=== PATIENT | female | born 1980 | race Caucasian/White ===

== ENCOUNTER 2021-07-08 11:58 | Emergency (ER) | payer OTHER, SELFPAY ==
[2021-07-08] VITALS (13 sets, daily range): BP systolic 134–153; BP diastolic 85–110; PULSE 82–114; RESP 18–25; TEMP 36.8; O2SAT 98–100
--- NOTE | ~2021-07-08 | CT_ITS ---
EXAMINATION: CT brain wo con DATE: 07/08/2021 13:01 INDICATION: Seizure. TECHNIQUE: Computed tomography (CT) of the head was performed without intravenous contrast. The mA wa s adjusted according to patient size. Iterative reconstruction technique was employed. The dose-lengt h product was 605.33 mGy-cm. COMPARISON: None FINDINGS: There is no intracranial hemorrhage, acute infarction, or abnormal intracranial mass lesion . The ventricles are normal in size. There is mucosal thickening in the paranasal sinuses. The orbits are normal. The mastoid air cells are normal. IMPRESSION: 1. Normal brain. Reviewed, dictated and finalized at location A. IMPRESSION: 1. Normal brain.
--- NOTE | ~2021-07-08 | XR_ITS ---
EXAMINATION: XR chest 1V DATE: 07/08/2021 13:02 INDICATION: Altered mental status. Shortness of breath. TECHNIQUE: A single frontal view of the chest was obtained. COMPARISON: CT abdomen and pelvis 07/06/2017 FINDINGS: The chest demonstrates clear lungs without pneumonia, pleural effusion, or pneumothorax. Th e heart size is normal. IMPRESSION: 1. No acute cardiopulmonary disease. Reviewed, dictated and finalized at location A.
[2021-07-08] MEDS: SODIUM CHLORIDE 0.9% IV 1,000 ML 999 ML IV CONT ×2 (12:41→14:49)
--- NOTE | 2021-07-08 12:41 | ECG_ITS ---
Measurements Intervals [place] Rate: 92 P: 66 SD: 126 QRS: 59 QRSD: 104 T: 51 QT: 333 QTc: 413 Interpretive Statements SINUS RHYTHM WITH SINUS ARRHYTHMIA NORMAL ECG NO PREVIOUS ECG AVAILABLE FOR COMPARISON Electronically Signed On 07-08-2021 17:37:11 CDT by Jaxson Diggs M.D.
--- NOTE | 2021-07-08 12:41 | ED.SEIZURE ---
HPI - Seizure General Chief Complaint: Seizure <Nadya Vasquez MD - Last Filed: 07/08/21 21:42> Stated Complaint: Seizures Due to Withdraw (fentanyl) <Nadya Vasquez MD - Last Filed: 07/08/21 21:42> Time Seen by Provider: 07/08/21 12:41 <Nadya Vasquez MD - Last Filed: 07/08/21 21:42> Source: patient and EMS <Nadya Vasquez MD - Last Filed: 07/08/21 21:42> Mode of arrival: EMS <Nadya Vasquez MD - Last Filed: 07/08/21 21:42> Limitations: other (Unreliable historian) <Naday Vasquez MD - Last Filed: 07/08/21 21:42> History of Present Illness HPI Narrative: Patient is a 41-year-old female with a history of scoliosis, asthma, polysubstance abuse, anxiety, depression, presenting to the emergency department via EMS for evaluation of rib pain, suicidal thoughts. Per EMS, patient was found this morning in a ditch, she had urinated on herself, was somewhat confused. Patient currently is alert and oriented to person, place, to time. I asked her what caused her to be admitted, she says she has no memory of this other than she may have been walking to past the time. Patient states that she thinks she may have had a seizure and may have hit her head. Patient states that she has struggled with suicidal thoughts over the past 3 months since her boyfriend reportedly overdosed and she found him in their home. Patient denies history of seizure disorder. She denies auditory or visual hallucinations. She denies plan or access to firearms. Patient states that she went to [facility] 3 days ago and was not offered any help. Patient reports history of suicidal ideation. Reports this has been quite frequent for her, daily. States that prior to her boyfriend passing away, she had been abstaining from narcotic use, but states that she last used 7 days ago. She reports alcohol use sparingly. Patient is reporting bilateral rib pain. She denies cough or shortness of breath. She denies fever but reports chills. She reports lower back pain. Patient denies lower extremity pain. I asked the patient when she last remembers from this morning or yesterday, patient states I do not know what happened. <Nadya Vasquez MD - Last Filed: 07/08/21 21:42> Related Data Allergies/Adverse Reactions: Allergies Allergy/AdvReac Type Severity Reaction Status Date / Time Penicillins Allergy Mild Difficulty Verified 07/08/21 17:08 Swallowing <Nadya Vasquez MD - Last Filed: 07/08/21 21:42> Review of Systems Review of Systems: CONSTITUTIONAL: Denies fever, reports chills EYES: Denies visual changes, redness, or discharge. ENT: Denies rhinorrhea, congestion, sore throat, or otalgia. CARDIOVASCULAR: Denies chest pain, reports bilateral lower rib pain without palpitations, or edema. RESPIRATORY: Denies cough or dyspnea. GASTROINTESTINAL: Denies abdominal pain, nausea, vomiting, or diarrhea. GENITOURINARY: Denies dysuria or hematuria. SKIN: Denies rash or itching. MUSCULOSKELETAL: Denies back pain, joint pain, or myalgia. NEUROLOGIC: Denies headache, numbness, or weakness. <Nadya Vasquez MD - Last Filed: 07/08/21 21:42> [facility] Social History Social History: Social History (Updated 07/08/21 @ 13:01 by Nadya Vasquez MD) Smoking status: Current every day smoker Tobacco type: cigarettes and e-cigarettes/vaping Alcohol intake: current Alcohol use details: Weekly Substance use: current Substance use type: amphetamines Other substance usage details: Fentanyl Last use: 1 week ago <Nadya Vasquez MD - Last Filed: 07/08/21 21:42> Exam Narrative: GENERAL: Awake, alert, conversant HEAD: Normocephalic, atraumatic. EYES: PERRLA and EOMI. ENT: Nares clear, no rhinorrhea or epistaxis. Mucous membranes moist. NECK: Supple. No midline cervical or midline thoracic tenderness. Patient does have scoliosis of the thoracic spine. CHEST: No res
--- NOTE | 2021-07-08 12:57 | PC.NURSE ---
pt. to ct accompanied by tech, reports they will remain with patient during imaging
[2021-07-08 13:29] LABS: Glucose Point of Care 106 mg/dl (65-105)
[2021-07-08 13:31] LABS: Basophils Percent Auto 0.5 % (0.2-1.2); Eosinophils Absolute Auto 0.1 K/mm3 (0-0.3); Eosinophils Percent Auto 0.6 % (0-4.4); Hemoglobin 16.6 g/dL (12.0-15.0); Immature Granulocyte Absolute 0.06 K/mm3 (0.00-0.031); Immature Granulocyte Percent A 0.7 % (0-0.5); Lymphocytes Absolute Auto 1.35 K/mm3 (0.9-3.2); Mean Corpuscular HGB Conc 33.2 g/dl (32-36); Mean Corpuscular Hemoglobin 28.1 pg (26-34); Mean Corpuscular Volume 84.6 fl (80-100); Mean Platelet Volume 10.5 fl (7.4-10.4); Monocytes Absolute Auto 0.8 K/mm3 (0.1-0.6); Neutrophils Absolute Auto 6.2 K/mm3 (1.3-6.7); Neutrophils Percent Auto 73.2 % (45.5-73.1); Platelet Count Result 323 k/mm3 (150-375); Red Blood Count 5.91 M/mm3 (4.2-5.4); White Blood Count 8.5 K/mm3 (4.5-10.0)
[2021-07-08 13:43] LABS: Alanine Aminotransferase 52 U/L (4-35); Albumin Level 5.3 g/dL (3.5-5.1); Alkaline Phosphatase 138 U/L (38-126); Anion Gap 17 mmol/L (8-16); Aspartate Amino Transferase 52 U/L (14-36); Bilirubin,Total 0.8 mg/dL (0.2-1.3); Blood Urea Nitrogen 14 mg/dL (7-17); Calcium 10.1 mg/dL (8.4-10.2); Carbon Dioxide 22 mmol/L (22-30); Chloride 104 mmol/L (98-107); Estimated CRCL calculation 70 ml/min; Estimated Glomerular Filt Rate > 60; Glucose 118 mg/dL (65-110); Potassium 3.4 mmol/L (3.4-5.0); Sodium 143 mmol/L (137-145)
[2021-07-08 13:47] LABS: Magnesium 2.5 mg/dL (1.6-2.3)
[2021-07-08 13:50] LABS: Acetaminophen < 10 ug/mL (10-30); Salicylate < 1.0 mg/dL (2-20)
[2021-07-08 13:51] LABS: Bilirubin Urine 1+ (Negative); Blood Urine Negative (Negative); Color Urine Yellow (Yellow); Glucose Urine UA Negative (Negative); Ketones Urine Trace mg/dL (Negative); Leukocyte Esterase Ur 1+ LEU/UL (Negative); Nitrate Urine Negative (Negative); Protein Urine 1+ mg/dL (Negative); Urobilinogen Urine 0.2 mg/dL (<2.0)
[2021-07-08 13:54] LABS: Add Urine Microscopic? YES; Appearance Urine Cloudy (Clear)
[2021-07-08 14:02] LABS: Bacteria Urine Trace /hpf; Mucus Urine Heavy /lpf; Squamous Epithelial Cell Urine Many /hpf (Few)
[2021-07-08 14:07] LABS: Barbiturate Screen Urine Negative (Negative); Benzodiazepines Screen Urine Negative (Negative)
[2021-07-08 14:09] LABS: Cannabinoid Screen Urine Negative (Negative); Cocaine Screen Urine Negative (Negative); Methadone Screen Urine Negative (Negative); Opiate Screen Urine Negative (Negative); Phencyclidine Screen Urine Negative (Negative)
[2021-07-08 14:27] LABS: Thyroid Stimulating Hormone 0.601 uIU/mL (0.465-4.680)
[2021-07-08 14:27] LABS: SARS-CoV-2 RNA PCR Negative
[2021-07-08 14:34] LABS: Amphetamine Screen Urine Positive (Negative)
--- NOTE | 2021-07-08 14:59 | PC.NURSE ---
pt. moved to RM. 15 sitter at bedside.
[2021-07-08] MEDS: KETOROLAC 30 MG/ML VIAL (*BKC) (16:25)
--- NOTE | 2021-07-08 17:26 | PC.NURSE ---
[phone] [facility] in [facility].
--- NOTE | 2021-07-08 19:45 | PC.NURSE ---
Pt has been accepted to [place] under the care of Dr. Martinez at this time. Call [phone] for report.
--- NOTE | 2021-07-08 20:01 | PC.NURSE ---
Report called to Maryjane FRASER at [place] at this time.
[2021-07-08] MEDS: LORazepam (*CRX) 0.5 MG TABLET PO (20:09)
--- NOTE | 2021-07-08 21:15 | PC.NURSE ---
[facility] called with ETA update. [id number]
--- NOTE | 2021-07-08 22:59 | PC.NURSE ---
[facility] called with ETA update [phone]
--- NOTE | 2021-07-09 00:05 | PC.NURSE ---
[facility] here.
[2021-07-09] MEDS: HYDROcodone/acetaminophen (*CRX) 5-325 MG TABLET 1 TAB PO (00:15)
[2021-07-09 00:19] VITALS: BP 139/94; PULSE 87; RESP 16; O2SAT 98
--- NOTE | 2021-07-09 00:20 | PC.NURSE ---
Pt given pain medication on discharge so pain as no re assessed
== END 2021-07-09 00:20 ==
PROVIDERS: Emergency Provider Emergency Medicine
DX: R45.851 Suicidal ideations (principal); F32.A Depression, unspecified; F19.10 Other psychoactive substance abuse, uncomplicated; E86.0 Dehydration; Z20.822 Contact with and (suspected) exposure to COVID-19; J45.909 Unspecified asthma, uncomplicated; M41.9 Scoliosis, unspecified; F41.9 Anxiety disorder, unspecified; F17.290 Nicotine dependence, other tobacco product, uncomplicated
CPT/HCPCS: 36415; 70450; 71045; 80053; 80307; 81001; 81025; 82948; 83735; 84443; 85025; 87086; 87088; 93005; 96361; 96374; 99285; A9270; C9803; J1885; J7030; U0003; U0005

== ENCOUNTER 2021-08-20 12:18 | Outpatient (CLI) | payer OTHER, SELFPAY ==
--- NOTE | ~2021-08-20 | XR_ITS ---
XR lumbar spine 2-3V DATE: 08/20/2021 13:02 INDICATION: Low back pain. No known injury. TECHNIQUE: AP, lateral, coned lateral lumbosacral views COMPARISON: None FINDINGS: The lumbar vertebrae are normally aligned. No fracture or bone destruction or spondylolisth esis. The lumbar pedicles are intact. Lumbar and lumbosacral interspaces are preserved. Sacroiliac kisha ints are intact. IMPRESSION: Negative Reviewed, dictated and finalized at location B. IMPRESSION: Negative
[2021-08-20 12:49] LABS: Hematocrit 42.2 % (37.0-47.0); Hemoglobin 13.7 g/dL (12.0-15.0); Mean Corpuscular HGB Conc 32.5 g/dl (32-36); Mean Corpuscular Hemoglobin 28.8 pg (26-34); Mean Corpuscular Volume 88.7 fl (80-100); Mean Platelet Volume 9.9 fl (7.4-10.4); Platelet Count Result 331 k/mm3 (150-375); Red Blood Count 4.76 M/mm3 (4.2-5.4); Red Cell Distribution Width 14.1 % (11.5-14.5); White Blood Count 9.5 K/mm3 (4.5-10.0)
[2021-08-20 13:04] LABS: Alanine Aminotransferase 29 U/L (6-35); Albumin Level 5.3 g/dL (3.5-5.1); Alkaline Phosphatase 93 U/L (38-126); Anion Gap 12 mmol/L (8-16); Aspartate Amino Transferase 26 U/L (14-36); Bilirubin,Total 0.7 mg/dL (0.2-1.3); Blood Urea Nitrogen 9 mg/dL (7-17); Calcium 9.6 mg/dL (8.4-10.2); Carbon Dioxide 24 mmol/L (22-30); Chloride 103 mmol/L (98-107); Cholesterol 175 mg/dL (0-200); Estimated Glomerular Filt Rate > 60; Glucose 99 mg/dL (65-110); HDL Direct 60 mg/dL; Potassium 3.7 mmol/L (3.4-5.0); Sodium 139 mmol/L (137-145); Triglycerides 74 mg/dL (<150)
[2021-08-20 13:08] LABS: Hemoglobin A1C 5.2 % (<5.7)
[2021-08-20 13:08] LABS: Creatinine Urine 30.5 mg/dL
[2021-08-20 13:10] LABS: Rheumatoid Factor < 8.6 IU/ML (<12)
[2021-08-20 13:14] LABS: MALB Creatinine Ratio < 19.7 mg/g (0-30); Microalbumin Urine Random < 6.0 mg/L (0-16.7)
[2021-08-20 13:15] LABS: LDL Cholesterol Direct 83 mg/dL
[2021-08-20 13:20] LABS: Erythrocyte Sedimentation Rate 14 mm/hr (0-20)
[2021-08-20 14:04] LABS: Free T4 Free Thyroxine 1.62 ng/mL (0.78-2.19); Vitamin D 25 Hydroxy 53.8 ng/mL
[2021-08-20 14:19] LABS: Hepatitis B Surface Antigen Negative (Negative)
[2021-08-20 14:25] LABS: HAV RESULT Negative (Negative); Hepatitis B Core IgM Result Negative (Negative)
[2021-08-20 14:52] LABS: Hepatitis C Virus Antibody Reactive (Negative)
[2021-08-22 19:16] LABS: Hepatitis C RNA, Quant PCR 205000 IU/mL
== END 2021-08-20 12:19 | disposition home or self-care (01) ==
PROVIDERS: PCP Emergency Medicine; Visit Provider Emergency Medicine
DX: M54.50 Low back pain, unspecified (principal)
CPT/HCPCS: 36415; 72100; 80053; 80061; 80074; 82043; 82306; 83036; 84439; 84443; 85027; 85652; 86038; 86430; 87522

== ENCOUNTER 2022-02-02 13:53 | Outpatient (CLI) | payer OTHER, SELFPAY ==
[2022-02-05 18:03] LABS: Albumin 4.2 g/dL (3.8-4.8); Alpha 1 Globulin 0.3 g/dL (0.2-0.3); Alpha 2 Globulin 0.6 g/dL (0.5-0.9); Beta 1 Globulin 0.4 g/dL (0.4-0.6); Gamma Globulin 1.2 g/dL (0.8-1.7); Protein, Total 7.1 g/dL (6.1-8.1)
== END 2022-02-02 13:54 | disposition home or self-care (01) ==
PROVIDERS: PCP Emergency Medicine; Visit Provider Emergency Medicine
DX: R77.9 Abnormality of plasma protein, unspecified (principal)
CPT/HCPCS: 36415; 84155; 84165

== ENCOUNTER 2022-02-06 15:22 | Outpatient (CLI) | payer OTHER, SELFPAY ==
--- NOTE | ~2022-02-06 | XR_ITS ---
EXAMINATION: XR chest 2V 02/06/2022 15:34 INDICATION: Cough. History of asthma. PROCEDURE: 2 view chest COMPARISON: 07/08/2021 FINDINGS: The lungs are clear. The cardiomediastinal silhouette is within normal limits. There are no pleural effusions. There is no pneumothorax suspected. IMPRESSION: 1: NO ACUTE CARDIOPULMONARY DISEASE. Reviewed, dictated and finalized at location B.
== END 2022-02-06 15:23 | disposition home or self-care (01) ==
PROVIDERS: PCP Emergency Medicine; Visit Provider Emergency Medicine
DX: R05.9 Cough, unspecified (principal); Z87.09 Personal history of other diseases of the respiratory system
CPT/HCPCS: 71046

== ENCOUNTER 2024-02-18 13:48 | Emergency (ER) | payer BC, MEDICAID, SELFPAY ==
--- NOTE | ~2024-02-18 | CT_ITS ---
History: Altered mental status PROCEDURE: CT head without contrast. COMPARISON: 07/08/2021 TECHNIQUE: Axial imaging of the head performed from the skull base to the vertex without IV contrast. Sagittal a nd coronal reformations obtained. DLP: 605 mGy-cm FINDINGS: The ventricles are normal in size, shape and position. There is no mass, mass effect or midline shift. There is no abnormal extra-axial fluid collection or intracranial hemorrhage. Visualized paranasal sinuses are clear. The mastoid air cells are well aerated. No acute displaced fractures within the overlying cranium. Impression: No acute intracranial hemorrhage or suspicious mass effect. Reviewed, dictated and finalized at location A. ED PRODUCTS INSPECTOR TRIMMER Impression: No acute intracranial hemorrhage or suspicious mass effect.
[2024-02-18 13:50] VITALS: BP 143/80; PULSE 94; RESP 18; TEMP 36.4; O2SAT 100
[2024-02-18 16:39] VITALS: BP 135/85; PULSE 93; RESP 18; O2SAT 100
--- NOTE | 2024-02-18 17:20 | ECG_ITS ---
Test Date: 2024-02-18 17:53:21 Measurements Intervals [place] Rate: 80 P: 61 SD: 136 QRS: 56 QRSD: 109 T: 47 QT: 349 QTc: 402 Interpretive Statements SINUS RHYTHM WITH SINUS ARRHYTHMIA NORMAL ECG No previous ECG available for comparison Electronically Signed On 02-18-2024 18:28:55 BREAKFAST BAR ATTENDANT by Russell Alonzo D.O.
--- NOTE | 2024-02-18 17:22 | ED_ITS ---
HPI - General Adult General Chief complaint: Urogenital-Female Stated complaint: brain fog, LLQ abd/flank pain, uti Time Seen by Provider: 02/18/24 16:37 Source: patient Mode of arrival: ambulatory Limitations: no limitations History of Present Illness HPI narrative: Garg 43-year-old female here for some vague symptoms going on for over a week including some feelings of ?brain fog?, feeling like she is having some visual changes with some spots in her vision. She is being treated for UTI which she has chronic UTIs and feels like it might not be fully treated and may be moving around her body and spreading. She went to be evaluated for that. She has been evaluated before for similar symptoms. Related Data Allergies Allergy/AdvReac Type Severity Reaction Status Date / Time Penicillins Allergy Mild Difficulty Verified 02/18/24 19:25 Swallowing Review of Systems Review of Systems: All systems reviewed & are unremarkable except as noted in HPI and below PMFSH Social History Social History Smoking status: Current every day smoker Tobacco type: cigarettes and e-cigarettes/vaping Alcohol intake: current Alcohol use details: Weekly Substance use: current Substance use type: amphetamines Other substance usage details: Fentanyl Last use: 1 week ago Exam Narrative: Constitutional: Generally well appearing, no acute distress Head: Atraumatic, no deformities. Eyes: Pupils equal, round, and reactive to light. Neck: Supple, no tracheal deviation, no JVD. ENMT: Mucous membranes moist Cardiovascular: S1, S2 auscultated. No murmurs, rubs, or gallops. No S3/S4. Normal Distal pulses. No peripheral edema. Respiratory: Lung sounds equal. No wheezes, rales, or rhonchi. Gastrointestinal: Abdomen was soft and non-tender. Non-distended. No rebound or guarding. Genitourinary: Deferred Musculoskeletal: Normal muscle tone and bulk. No obvious deformities or tenderness over extremities. Skin: No rashes. Neurological: Strength 5/5 in extremities. Cranial nerves I-XII grossly intact. Distal sensation intact. Mental Status: Awake, alert and oriented x3. Follows commands Course Vital Signs Vital signs: Vital Signs Temperature 36.4 C 02/18/24 13:50 Pulse Rate 94 02/18/24 13:50 Respiratory Rate 18 02/18/24 13:50 Blood Pressure 143/80 H 02/18/24 13:50 Pulse Oximetry 100 02/18/24 13:50 Oxygen Delivery Room Air 02/18/24 13:50 Temperature 36.4 C 02/18/24 13:50 Pulse Rate 97 02/18/24 19:15 Respiratory Rate 13 02/18/24 19:15 Blood Pressure 121/76 02/18/24 19:15 Pulse Oximetry 100 02/18/24 19:15 Oxygen Delivery Room Air 02/18/24 13:50 Medical Decision Making MDM Narrative Medical decision making narrative: Well-appearing, patient has some vague symptoms that of an ongoing with brain fog, UTI being treated with Macrobid she was concerned about potentially infection spread. Vitals are regular, she is well appearing, nonfocal exam. Obtaining CT head for her brain fog symptoms as well as abdominal workup. EKG obtained at 5:53 p.m. shows sinus well sinus arrhythmia.? Normal intervals.? No ST elevation depression.? No T-wave changes.? Impression: No STEMI Workup shows UTI, otherwise no focal abnormalities notable. I suspect given with the pain in her back, likely pyelonephritis. Will treat with ceftriaxone and a prescription for ciprofloxacin pyelonephritis. Patient is agreeable with plan. Pt feeling improved and would like to go home at this point. Return precautions were given to the patient include any new or worsening symptoms or development of and not limited to any chest pain, shortness of breath, lightheadedness, abdominal pain, fevers, chills. Patient understands and agrees. They are to follow-up with her PCP. All questions were answered. I reviewed the patient's vital signs, history, allergies, and labs and imaging workup. Vital Signs Vital Signs: Vital Signs Temperature 36.4 C 02/18/24 13:50 Pulse Rate 94 02/18/24 13:50 Respiratory Rate 18 02/18/24 13:50 Blood Pressure 143/80 H 02/18/24 13:50 Pulse Oximetry 100 02/18/24 13:50 Oxygen Delivery Room Air 02/18/24 13:50 Temperature 36.4 C 02/18/24 13:50 Pulse Rate 97 02/18/24 19:15 Respiratory Rate 13 02/18/24 19:15 Blood Pressure 121/76 02/18/24 19:15 Pulse Oximetry 100 02/18/24 19:15 Oxygen Delivery Room Air 02/18/24 13:50 Lab Data 02/18/24 18:21 02/18/24 18:21 Labs: Lab Results 02/18/24 02/18/24 Range/Units 18:21 18:24 WBC 5.6 (4.5-10.0) K/mm3 RBC 3.17 L (4.2-5.4) M/mm3 Hgb 9.6 L D (12.0-15.0) g/dL Hct 28.8 L (37.0-47.0) % MCV 90.9 (80-100) fl MCH 30.3 (26-34) pg MCHC 33.3 (32-36) g/dl RDW 13.2 (11.5-14.5) % Plt Count 236 (150-375) k/mm3 MPV 10.2 (7.4-10.4) fl Immature Gran % (Auto) 0.2 (0-0.5) % Neut % (Auto) 68.3 (45.5-73.1) % Lymph % (Auto) 22.2 (18.3-44.2) % [place] % (Auto) 8.5 (2.6-8.5) % Eos % (Auto) 0.4 (0-4.4) % Baso % (Auto) 0.4 (0.2-1.2) % Lymph # (Auto) 1.23 (0.9-3.2) K/mm3 [place] # (Auto) 0.5 (0.1-0.6) K/mm3 Eos # (Auto) 0.0 (0-0.3) K/mm3 Baso # (Auto) 0.0 (0.0-0.1) K/mm3 Abs Immat Gran (auto) 0.01 (0.00-0.031) K/mm3 Absolute Neuts (auto) 3.8 (1.3-6.7) K/mm3 Absolute Nucleated RBC 0.000 (0.0-0.012) K/mm3 Nucleated RBC % 0.0 (0.0-0.2) % Sodium 141 (137-145) mmol/L Potassium 3.0 L (3.4-5.0) mmol/L Chloride 116 H (98-107) mmol/L Carbon Dioxide 21 L (22-30) mmol/L Anion Gap 4 (4-12) mmol/L BUN 5 L (7-17) mg/dL Creatinine 0.60 L (0.7-1.0) mg/dL Estim Creat Clear Calc 93 ml/min Estimated GFR > 60 (59 - ) Glucose 74 (65-110) mg/dL Lactic Acid 0.7 (0.7-2.0) mmol/L Calcium 7.0 L (8.4-10.2) mg/dL Total Bilirubin 0.4 (0.2-1.3) mg/dL AST 22 (14-36) U/L ALT 24 (6-35) U/L Alkaline Phosphatase 55 (38-126) U/L Total Protein 6.0 L (6.3-8.2) g/dL Albumin 3.1 L (3.5-5.1) g/dL Lipase 94 (23-300) U/L Urine Color Yellow (Yellow) Urine Appearance Cloudy H (Clear) Urine pH 6.0 (5.0-9.0) Ur Specific [place] 1.010 (1.001-1.035) Urine Protein Negative (Negative) mg/dL Urine Glucose (UA) Negative (Negative) mg/dL Urine Ketones Negative (Negative) mg/dL Ur Blood (Man) Negative (Negative) Urine Nitrate Negative (Negative) Urine Bilirubin Negative (Negative) Urine Urobilinogen 0.2 (<2.0) mg/dL Leukocyte Esterase Rfl 2+ H (Negative) UMER/UL Urine RBC 0-2 (0-2) /hpf Urine WBC 21-50 H (0-3) /hpf Ur Squamous Epith Cells Moderate (Few) /hpf Urine Bacteria Rare /hpf Urine Casts 0-2 Discharge Plan Discharge Clinical Impression: Urinary tract infection, Pyelonephritis Patient Disposition: Home, Self-Care Condition: Stable Instructions: Antibiotic Form, Kidney Infection (ED) Prescriptions: New ciprofloxacin HCl 500 mg tablet 500 mg PO BID 7 Days Qty: 14 0RF Rx Instructions: administer within 120 minutes prior to surgical incision Follow-up/Referrals: Jose Juan Santos MD [Primary Care Provider] - Time of Disposition: 19:27
[2024-02-18] MEDS: SODIUM CHLORIDE 0.9% IV 1,000 ML 999 ML IV CONT (18:13)
--- NOTE | 2024-02-18 18:21 | PC.NURSE ---
This RN and another RN attempted to get blood from patient and was unsuccessful. provider aware
[2024-02-18 18:30] LABS: Basophils Percent Auto 0.4 % (0.2-1.2); Eosinophils Percent Auto 0.4 % (0-4.4); Hematocrit 28.8 % (37.0-47.0); Hemoglobin 9.6 g/dL (12.0-15.0); Immature Granulocyte Absolute 0.01 K/mm3 (0.00-0.031); Immature Granulocyte Percent A 0.2 % (0-0.5); Lymphocytes Absolute Auto 1.23 K/mm3 (0.9-3.2); Lymphocytes Percent Auto 22.2 % (18.3-44.2); Mean Corpuscular HGB Conc 33.3 g/dl (32-36); Mean Corpuscular Hemoglobin 30.3 pg (26-34); Mean Corpuscular Volume 90.9 fl (80-100); Mean Platelet Volume 10.2 fl (7.4-10.4); Monocytes Absolute Auto 0.5 K/mm3 (0.1-0.6); Monocytes Percent Auto 8.5 % (2.6-8.5); Neutrophils Absolute Auto 3.8 K/mm3 (1.3-6.7); Neutrophils Percent Auto 68.3 % (45.5-73.1); Platelet Count Result 236 k/mm3 (150-375); Red Blood Count 3.17 M/mm3 (4.2-5.4); Red Cell Distribution Width 13.2 % (11.5-14.5); White Blood Count 5.6 K/mm3 (4.5-10.0)
[2024-02-18 18:39] LABS: Lactic Acid Reflex 0.7 mmol/L (0.7-2.0)
[2024-02-18 18:40] LABS: Alanine Aminotransferase 24 U/L (6-35); Albumin Level 3.1 g/dL (3.5-5.1); Alkaline Phosphatase 55 U/L (38-126); Anion Gap 4 mmol/L (4-12); Aspartate Amino Transferase 22 U/L (14-36); Bilirubin,Total 0.4 mg/dL (0.2-1.3); Blood Urea Nitrogen 5 mg/dL (7-17); Carbon Dioxide 21 mmol/L (22-30); Chloride 116 mmol/L (98-107); Estimated CRCL calculation 93 ml/min; Estimated Glomerular Filt Rate > 60; Glucose 74 mg/dL (65-110); Lipase 94 U/L (23-300); Sodium 141 mmol/L (137-145)
[2024-02-18 19:01] LABS: Add Urine Microscopic? YES; Appearance Urine Cloudy (Clear); Bacteria Urine Rare /hpf; Bilirubin Urine Negative (Negative); Blood Urine Negative (Negative); Color Urine Yellow (Yellow); Glucose Urine UA Negative (Negative); Ketones Urine Negative (Negative); Leukocyte Esterase Ur 2+ LEU/UL (Negative); Nitrate Urine Negative (Negative); Non Pathogenic Casts 0-2; Protein Urine Negative (Negative); RBC Urine 0-2 /hpf (0-2); Squamous Epithelial Cell Urine Moderate /hpf (Few); Urobilinogen Urine 0.2 mg/dL (<2.0); WBC Urine 21-50 /hpf (0-3)
[2024-02-18 19:15] VITALS: BP 121/76; PULSE 97; RESP 13; O2SAT 100
--- NOTE | 2024-02-18 19:18 | PC.NURSE ---
Report received from EVELIO Eckert. Assumed care of patient at this time.
[2024-02-18] MEDS: cefTRIAXone 2 GM/NS 100 ML 2 GM/100 ML BAG IVPB (19:24)
[2024-02-18] MEDS: KETOROLAC 15 MG/ML VIAL (*BKC) IV PUSH (19:26)
[2024-02-18 20:00] VITALS: BP 128/88; PULSE 83; RESP 17; O2SAT 100
== END 2024-02-18 20:17 | disposition home or self-care (01) ==
PROVIDERS: Emergency Provider Emergency Medicine; PCP Emergency Medicine
DX: N39.0 Urinary tract infection, site not specified (principal); N12 Tubulo-interstitial nephritis, not specified as acute or chronic; F17.210 Nicotine dependence, cigarettes, uncomplicated; F17.290 Nicotine dependence, other tobacco product, uncomplicated
CPT/HCPCS: 36415; 70450; 80053; 81001; 83605; 83690; 85025; 87086; 93005; 96361; 96365; 96375; 99284; J0696; J1885; J7030

== ENCOUNTER 2024-02-28 13:05 | Outpatient (CLI) | payer BC, MEDICAID, SELFPAY ==
[2024-02-28 14:07] LABS: Cholesterol 246 mg/dL (0-200); HDL Direct 91 mg/dL; Rheumatoid Factor < 12.0 IU/ML (<12); Triglycerides 91 mg/dL (<150)
[2024-02-28 14:14] LABS: Add Urine Microscopic? YES; Appearance Urine Cloudy (Clear); Bacteria Urine Rare /hpf; Bilirubin Urine Negative (Negative); Blood Urine Negative (Negative); Color Urine Yellow (Yellow); Glucose Urine UA Negative (Negative); Ketones Urine Negative (Negative); Leukocyte Esterase Ur 3+ LEU/UL (Negative); Need Manual Microscopic Reviewed; Nitrate Urine Negative (Negative); Non Pathogenic Casts 0-2; Protein Urine Negative (Negative); RBC Urine 0-2 /hpf (0-2); Specific Grav Ur 1.003 (1.001-1.035); Squamous Epithelial Cell Urine Moderate /hpf (Few); Urobilinogen Urine 0.2 mg/dL (<2.0); WBC Urine 21-50 /hpf (0-3)
[2024-02-28 14:17] LABS: LDL Cholesterol Direct 97 mg/dL
[2024-02-28 14:18] LABS: Parathyroid Intact 15.1 pg/mL (14.5-75.2)
[2024-02-28 14:40] LABS: Erythrocyte Sedimentation Rate 13 mm/hr (0-20)
[2024-02-28 14:48] LABS: Iron 84 ug/dL (37-170)
[2024-02-28 15:05] LABS: Free T4 Free Thyroxine 1.32 ng/mL (0.78-2.19)
[2024-02-28 15:12] LABS: Vitamin D 25 Hydroxy 63.9 ng/mL
== END 2024-02-28 13:06 | disposition home or self-care (01) ==
PROVIDERS: PCP Emergency Medicine; Visit Provider Emergency Medicine
DX: Z00.00 Encounter for general adult medical examination without abnormal findings (principal); D64.9 Anemia, unspecified
CPT/HCPCS: 36415; 80061; 81001; 82306; 83540; 83970; 84439; 84443; 85652; 86038; 86039; 86430; 87086

== ENCOUNTER 2024-02-29 09:02 | Outpatient (CLI) | payer BC, MEDICAID, SELFPAY ==
--- NOTE | ~2024-02-29 | MM_ITS ---
EXAMINATION: MM screening kassandra BI w jordi HISTORY: Screening mammogram TECHNIQUE: Craniocaudal and mediolateral oblique 3-D tomosynthesis images were obtained and synthetic 2-D images were generated. CAD analysis was submitted and interpreted. COMPARISON: No prior mammogram is available for comparison at this institution. BREAST PARENCHYMAL COMPOSITION:Dense: The breasts are heterogeneously dense, which may obscure small masses. FINDINGS: No suspicious mass, calcification, or architectural distortion are identified in either jacoby ast to suggest malignancy. There has been no suspicious interval change. IMPRESSION: No mammographic evidence of malignancy. Recommend routine screening mammography in one year. BI-RADS Category 1: Negative Reviewed, dictated and finalized at location . CASE ASSEMBLER
== END 2024-02-29 09:03 | disposition home or self-care (01) ==
PROVIDERS: PCP Emergency Medicine; Visit Provider Emergency Medicine
DX: Z12.31 Encounter for screening mammogram for malignant neoplasm of breast (principal)
CPT/HCPCS: 77063; 77067

== ENCOUNTER 2024-04-26 10:46 | Outpatient (CLI) | payer BC, MEDICAID, SELFPAY ==
--- NOTE | ~2024-04-26 | US_ITS ---
Mid back area ULTRASOUND Ordering provider: Jose Juan Santos MD History: . Lump on back . Comparison: None. FINDINGS/impression: Hypoechoic area measuring 4.5 x 4.9 x 2.7 cm in the mid back. The differential includes a mass versus lipoma although this likely. Inflammatory changes cannot be excluded with no significant blood flow. Further evaluation advised. Reviewed, dictated and finalized at location A. TH ASSOCIATE
== END 2024-04-26 10:47 | disposition home or self-care (01) ==
LOC: MICIMG 10:46
PROVIDERS: PCP Emergency Medicine; Visit Provider Emergency Medicine
DX: R22.2 Localized swelling, mass and lump, trunk (principal)
CPT/HCPCS: 76705

== ENCOUNTER 2024-08-18 00:04 | Day surgery (SDC) | payer BC, SELFPAY ==
--- NOTE | 2024-08-08 08:31 | PC.NURSE ---
Report to the Outpatient Waiting Room, entrance under the green pavilion located off [facility], at time _1100 on date _08/18/24_. Planned Procedure Time: _1300_.? Time changes happen often and if your time is changed the preop area will call you the afternoon before. - You and your visitor will be asked to self-screen and do not enter if you have any COVID symptoms. Please call surgeon if you need to reschedule. - A mask is optional within the hospital at this time. Patients may have clear liquids (water, carbonated beverages, clear teas, apple juice) until 3 hours prior to surgery with a maximum of 20 ounces. - No food from midnight until time of surgery and no smoking, or chewing tobacco (or any form of nicotine). No chewing gum, candy or mints. - Infants may have breast milk until 4 hours before surgery, infant formula 6 hours prior to surgery. - Children will be allowed to drink immediately following surgery.? If applicable, please bring a bottle or sippy cup to assist with drinking. Juice, water, soda, and popsicles are readily available.? For infants on formula, please bring formula the day of surgery.? Pacifiers are allowed. Take only the following medications with a SIP of water on the morning of surgery: ___NONE DO NOT STOP ANY OF YOUR OTHER PRESCRIPTION MEDICATIONS PRIOR TO SURGERY EXCEPT THE FOLLOWING Hold all vitamins and supplements for 3 days per anesthesiologist. Medications to discontinue per physician Date to take last dose Please no make-up, nail wolof, hairspray, perfume, deodorant, or body powder the day of surgery.? No jewelry (including any body piercings) or valuables the day of surgery, leave them at home.? Please take a shower or bath the night before, or the morning of, surgery with HIBICLENS antibacterial soap.? Wear comfortable, loose fitting clothing.? Children are encouraged to wear pajamas. - Jewelry must be removed prior to entering the operating room.? Rings and piercings that are not removed may be cut off. - The hospital will not accept responsibility for valuables.? - Please leave all valuables, including medications, at home the day of surgery. If you are going home after surgery, a licensed moving van driver must drive you home.? - NO public transportation without another adult if you receive anesthesia. - We recommend that an adult stay with you for 24 hours following discharge. - We also recommend that you do not drive, make important decision, drink alcoholic beverages, or take any drugs that were not prescribed by your health care provider for at least 24 hours after your discharge time. For Pediatric surgeries, we recommend two adults accompany the child home. Follow any additional instructions given to you from your surgeon. Telephone instructions given to __PATIENT__and asked if any additional questions and then verbalized understanding. Patient advised to call surgeon office or pre surgery nurse liaison [phone] if any additional questions.
--- NOTE | 2024-08-15 16:44 | P.SS_ITS ---
Same Day Admit/Disch: HPI History of Present Illness Chief complaint: Dermatofibroma Lt Thigh,Lipoma of Back 8cm Narrative: Jyoti Mott is a 44 year old female who has noticed a subcutaneous mass of her mid back as well as a skin lesion of her left groin that have been getting bigger and are somewhat painful or irritating. She had an ultrasound of the back lesion and it showed a 4.9 cm subcutaneous mass most likely a lipoma. She was seen in the office and found to have an 8 x 6 cm subcutaneous mass of the mid back that was consistent with a lipoma. She has what appears to be a dermatofibroma on the upper left thigh. She is taken to surgery now for excision of both of these lesions. [facility] Family History Family History Grandparent Diabetes mellitus Heart disease Mother Hypertension Depression Thyroid disorder Sibling Hypertension Heart disease Father Depression Social History Social History Smoking packs per day: 0.75 Smoking cigarettes per day: 15.0 Years smoked: 13 Smoking pack-years: 9.75 Smoking status: Current every day smoker Tobacco type: cigarettes and e-cigarettes/vaping Additional smoking assessment comments: QUIT 2009 Alcohol intake: former Alcohol use details: Weekly Substance use: current Substance use type: former substance user, marijuana, crack/cocaine, heroin and methamphetamine Other substance usage details: QUIT 3 YRS AGO Last use: 1 week ago Do You Feel Safe in your Home?: Yes Lack of Transportation: No Lack of Food: Never True Current Housing: I Have Housing Concerned About Future Housing: No Difficulty Paying Gas/Electric Bills: No Difficulty Paying for Meds: No Currently Unemployed: No Education: High School Diploma/GED Difficulty w/ Childcare or Family Care: No Living arrangements: with family Same Day Admit/Disch: Med Pre-admit Medications Home Medications ?Medication ?Instructions ?Recorded ?Confirmed ?Type No Home Medications 08/08/24 08/08/24 History ketorolac 10 mg tablet 10 mg PO Q6H 4 days #16 tabs 08/18/24 Rx oxycodone-acetaminophen 5 mg-325 0.5 - 1 tablet PO Q4H PRN pain #7 08/18/24 Rx mg tablet (Percocet) tabs Review of Systems Review of Systems All systems reviewed & are unremarkable except as noted in HPI and below (HPI) Exam Const: General: comfortable, no acute distress, alert and awake HENMT: Head: normocephalic and atraumatic Mouth: Yes Normal oral and palatal mucosa present Eyes: Conjunctivae: conjunctivae normal Pupils: Equal, round and reactive pupils present EOM: EOMs intact bilaterally Neck: Neck: normal visual inspection, no lymphadenopathy and nontender Resp: Effort & Inspection: normal respiratory effort Auscultation: clear to auscultation bilaterally Cardio: Rate: regular rate Rhythm: regular rhythm Heart sounds: no gallops, no murmurs and no rubs GI: Inspection: non-distended GI Palp: Yes Soft to palpation, No Tenderness to palpation present (GI), No Hepatomegaly present and No Splenomegaly present Back/Spine/Pelvis: Thoracic/Lumbar Spine: mass (8 x 6 cm subcutaneous mass) rubbery, firm and mobile; tender Skin: Lesions: no lesions Rashes: no rashes Neuro: General: no focal motor deficits and CN's II-XI intact bilaterally Cranial nerves: Yes Equal, round and reactive pupils present, Yes Bilaterally intact EOM present, Yes facial symmetry and Yes Midline tongue present Spe ech: normal speech Motor exam (neuro): 5/5 motor strength present throughout and Motor abnormalities not present Extrem: General: no clubbing, cyanosis or edema and edema Left lower extremity: hip/thigh (Left thigh has a dermatofibroma that has a 2 cm base but protrudes 3 cm) Psych: Affect: normal affect Thought process: Normal thought process present Insight: Good insight present (Psych) DS: Summary Time Spent with Patient Time attestation: Total time spent providing and/or coordinating discharge services: DS: Admitting Diagnosis Discharge Date 08/18/2024 Admitting Diagnosis * Subcutaneous mass of the midback-most consistent with a lipoma both by exam and ultrasound. Plan to excise under anesthesia as an outpatient. Procedure risks benefits and alternatives have been discussed with the patient. Usual recovery has been discussed as well. * Skin lesion left thigh-consistent with dermatofibroma that has a 2 cm base and is 3 cm tall. It is also symptomatic. We plan to excise this under anesthesia as an outpatient as well. Full discussion was under gone as well here. * History polysubstance abuse * Recovering alcoholic * History of smoking-quit 2009 Discharge Plan Discharge Patient Disposition: Home Discharge Instructions: * Okay to bathe or shower tomorrow, wash incisions with soap and water every day or every other day as needed. * Up walking for 5-10 minutes 2 to 3 times a day for 1 week * No sports, heavy exertion, running, rapid forceful movements, extreme flexion of the back, or other stress on the incisions for 1 week * See Dr. Medina in the office in 2 weeks * May drive a car tomorrow if not taking narcotic pain medication. * Stairs are okay * Call Dr. Medina if severe pain or swelling at either wound, persistent drainage or bleeding from either wound, temp over 100.5, or other significant change in condition. * Try to use [id number] ibuprofen or Tylenol for pain relief, use prescription pain medication very sparingly. Patient Language: Maori Stand Alone Forms: General Discharge Instructions Follow-up/Referrals: Danilo Medina MD [Physician] - 2 Weeks (Call Dr. Rae office for appointment if you do not already have an appointment) Discharge Medications: New ketorolac 10 mg tablet 10 mg PO Q6H 4 Days Qty: 16 0RF oxycodone-acetaminophen [Percocet] 5-325 mg tablet 0.5 - 1 tablet PO Q4H PRN (Reason: pain) Qty: 7 0RF Continued No Home Medications
--- OUTSIDE RECORDS SUMMARY | 2024-08-18 00:06 | XMS_ITS | CONTINUITY OF CARE DOCUMENT ---
Author Name dianne dean Address Unknown Organization [facility] Address [address] [place] [address] Phone [phone] Care Team Providers Care Liner Reroll Tender Name Role Phone Manuel Wood MD Unavailable [phone] DOUG SORTO MD Unavailable [phone] DOUG SORTO MD Unavailable [phone] INSURANCE PROVIDERS Payer name Policy type / Coverage type [place] [employer] [place] MED[place] Medicaid [id number]
--- OUTSIDE RECORDS SUMMARY | 2024-08-18 00:06 | XMS_ITS | Clinical Summary ---
Author Organization [facility] Address [address] [place] [address] Care Team Providers Care Hydroelectric Station Operator Name Role Phone None, Provider MD Primary Care Provider Unavaila ble Allergies Active Allergy Reactions Criticality Noted Date Comments Penicillins Anaphylaxis High 01/09/2024 Medications No known medications Social History Tobacco Use Types Packs/Day Years Used Date Smoking Tobacco: Never Smokeless Tobacco: Never Tobacco Cessation:Counseling Given: Not Answered Alcohol Use Standard Drinks/Week Comments Never 0 (1 standard drink = 0.6 oz pur e alcohol) Comments Unknown Sex and Gender Information Value Date Recorded Sex Assigned at Not on file Legal Sex Female 1:28 AM CDT Gender Identity Not on file Sexual Orientation Not on file Last Filed Vital Signs Vital Sign Reading Time Taken Comments Blood Pressure 140/66 01/09/2024 2:25 PM CDT Pulse 70 01/09/2024 2:25 PM CDT Temperature 36.7 C (98 F) 01/09/2024 2:25 PM CDT Respiratory Rate 18 01/09/2024 2:25 PM CDT Oxygen Saturation 99% 01/09/2024 2:25 PM CDT Inhaled Oxygen Concentration - - Weight 59 kg (130 lb) 01/09/2024 12:04 PM CDT Height 162.6 cm (5' 4 ) 01/09/2024 12:04 PM CDT Body Mass Index 22.31 01/09/2024 12:04 PM CDT Plan of Treatment Health Maintenance Due Date Last Done Comments Cervical Cancer Screening Pa p Smear (Age 30 to 64) Every 3 Years 1981 Annual Physical 1984 Hepatitis C 1999 Hepatitis B Vaccines (1 of 3 - 19+ 3-dose series) 2000 Cervical Cancer Screening Pa p with HPV Testing (Age 30 to 64) Every 5 Years 2011 Cervical Cancer Screening with HPV 2011 Mammogram Screening 2021 COVID-19 Vaccine (2 - 2023-2 5 season) 2023 07/19/2021 DTaP, Tdap and Td Vaccines ( 2 - Td or Tdap) 06/11/2025 06/12/2015 HPV Vaccines Aged Out No longer eligi ble based on patient's age to complete this topic Meningococcal B Vaccine Aged Out No l onger eligible based on patient's age to complete this topic Meningococcal Vaccine Aged Out No tom greg eligible based on patient's age to complete this topic Pneumococcal Vaccine: Pediat rics (0 to 5 Years) and At-Risk Patients (6 to 49 Years) Aged Out No longer eligi ble based on patient's age to complete this topic RSV Immunizations Under 20 Months Aged Out No longer eligible based on patient's age to complete this topic Insurance MEDICAID Care Teams Hydroelectric Station Operator Relationship Specialty Start Date End Date None, Provider, PCP - General UNKNOWN PHYSICIAN SPECIALTY 01/09/24
--- NOTE | 2024-08-18 11:53 | WPDHPUPDATE1 ---
History and Physical Update Update Date/Time: 08/18/24 11:53 History and Physical has been reviewed, including an updated exam of the patient. There are NO changes in the patient's condition. Risks, benefits, and alternatives have been discussed and questions answered. Patient agrees to proceed with procedure.
[2024-08-18 12:30] VITALS: BP 110/70; PULSE 70; RESP 14; TEMP 37.2; O2SAT 100
[2024-08-18] MEDS: LACTATED RINGERS 1,000 ML 30 ML IV CONT ×2 (12:30→15:47)
--- NOTE | 2024-08-18 14:15 | WPDANESEPPF ---
Anes - Initial Pre Proc Eval Procedure: Operation Date: 08/18/24 13:00 Proposed Procedures p Excision Dermatofibroma Left Thigh, Excision Lipoma of Back - Danilo Medina MD Date/Time: 08/18/24 14:15 Surgeon: Danilo Medina MD Pre Op Diagnosis: Dermatofibroma Lt Thigh,Lipoma of Back 8cm Patient Data Age: 44 Gender: F Height: 1.63 m Weight: 65.35 kg Last Vital Signs Temp 98.9 F 08/18/24 12:30 Pulse 70 08/18/24 12:30 Resp 14 08/18/24 12:30 BP 110/70 08/18/24 12:30 Pulse Ox 100 08/18/24 12:30 O2 Del Method Room Air 08/18/24 12:30 Allergies Allergy/AdvReac Type Severity Reaction Status Date / Time Penicillins Allergy Mild Difficulty Verified 08/18/24 13:28 Swallowing Home Medications ?Medication ?Instructions ?Recorded ?Confirmed ?Type No Home Medications 08/08/24 08/08/24 History ketorolac 10 mg tablet 10 mg PO Q6H 4 days #16 tabs 08/18/24 Rx oxycodone-acetaminophen 5 mg-325 0.5 - 1 tablet PO Q4H PRN pain #7 08/18/24 Rx mg tablet (Percocet) tabs Patient hx anesthesia problems: none Family hx anesthesia problems: none Results Review: All pre-operative results and documents have been reviewed as part of the pre-operative evaluation. [facility] Family History Family History Grandparent Diabetes mellitus Heart disease Mother Hypertension Depression Thyroid disorder Sibling Hypertension Heart disease Father Depression Social History Social History Smoking status: Current every day smoker Tobacco type: cigarettes and e-cigarettes/vaping Alcohol intake: former Alcohol use details: Weekly Substance use: current Substance use type: former substance user, marijuana, crack/cocaine, heroin and methamphetamine Other substance usage details: QUIT 3 YRS AGO Last use: 1 week ago Do You Feel Safe in your Home?: Yes Lack of Transportation: No Lack of Food: Never True Current Housing: I Have Housing Concerned About Future Housing: No Difficulty Paying Gas/Electric Bills: No Difficulty Paying for Meds: No Currently Unemployed: No Education: High School Diploma/GED Difficulty w/ Childcare or Family Care: No Anes - Eval Final PreProcedure Day of Procedure 08/18/24 14:15 Patient weight: normal Lungs: normal air movement Airway: Mallampati scale class II and special considerations (Upper incisors discolored. ) Neurological: alert and oriented Last oral intake: >/= 8 hours ASA classification: II Emergent: no Anesthetic plan: proceed Anesthesia type and monitoring: general LMA and standard monitoring Results Review: All pre-operative results and documents have been reviewed as part of the pre-operative evaluation. Ex smoker, quit 2009, asthma and stable overall. Hx of polysubstance abuse but none for approx 3 years per records. Informed Consent: The patient's anesthetic plan and its attendant risks and benefits were discussed with the patient/family/POA. Questions were solicited and answers provided to the satisfaction of the patient/family/POA.
[2024-08-18] MEDS: ceFAZolin 2 GM/D5W 50 ML 2 GM/50 ML BAG IVPB (14:38)
[2024-08-18] MEDS: BUPIVACAINE/EPINEPHRINE 0.5% 30 ML VIAL INFILTRATE (14:44)
[2024-08-18 15:47] VITALS: BP 119/82; PULSE 104; RESP 22; TEMP 36.5; O2SAT 100
[2024-08-18 16:00] VITALS: BP 116/76; PULSE 91; RESP 15; O2SAT 100
--- NOTE | 2024-08-18 16:07 | W.PM.PROC2 ---
Procedure Note - Detailed Date of Procedure 08/18/24 Pre-op Diagnosis Dermatofibroma Lt Thigh,Lipoma of Back 8cm Post-op Diagnosis Same Procedure Performed Excision 8 cm subcutaneous mass of the back with 10 cm layered closure; excision 2.6 cm skin lesion of the groin with 2 mm margins, 3 cm excision and simple closure. Surgeon Danilo Medina MD Pharmacy Clerk Nita LOWERYA, Ruth Ann Collazo POISER BALANCE Anesthesia General (LMA) and Local (0.5% Marcaine with epinephrine) Indications Patient has 2 bothersome skin lesions. She has a subcutaneous mass in the lower thoracic back near the midline. Ultrasound and clinical exam suggests this is an 8 cm lipoma. She also has a large skin tag or dermatofibroma of the proximal medial left thigh/groin. She is taken to surgery now for excision of both of these lesions. Findings Lipoma was 8 cm in its longest dimension, a 10 cm wound was created which was closed in 3 layers. The base of the dermatofibroma was 2.6 cm and it was excised with 2 mm margins. Description of Procedure Patient was taken to surgery and induced into anesthesia with LMA. She was 1st turned to right lateral decubitus position. I had marked the area of the subcutaneous mass on her back in the preoperative area. We exposed this area. The back was prepped and draped. The proposed incision was marked on the skin which was transversely oriented. Local was infiltrated in the area of the planned excision as well as around the subcutaneous mass. Incision was made and dissection was carried down through the superficial subcutaneous. We dissected through Rizwana's fascia and then found the subcutaneous mass which appeared to be a lipoma. Dissection was carried out and the lipoma was carefully dissected with primarily sharp but some blunt dissection from the surrounding subcutaneous and off the back musculature and 1 of the spinous processes. The periosteum was not violated. It was measured and measured 8 cm in its longest dimension. The wound incision measured 10 cm. Rizwana's fascia was closed with interrupted 3-0 Vicryl suture. These suture also incorporated some of the superficial tissue of the base of the wound to minimize space. The skin was then loosely approximated with subcuticular interrupted 4-0 Vicryl skin suture. Finally the skin was closed with a running 4-0 Monocryl skin suture. The wound was dressed with Exofin surgical adhesive. After the Exofin had dried, we then returned the patient to a supine position. She was placed in Chris stirrups in lithotomy so that the left groin, proximal thigh skin lesion was exposed. Surgical team changed gown and gloves. Prep and drape was carried out. In ellipse was drawn around the base of the lesion. The base of the lesion measured 2.6 cm and a 2 mm margin was taken on each side. Local was infiltrated into this ellipse as well as the subcutaneous tissues. Incision was made and the dermatofibroma was excised. It was sent to pathology in formalin as was the subcutaneous mass of the back. The wound was closed with subcuticular interrupted 4-0 Vicryl suture followed by a running 4-0 Monocryl skin suture. This wound was also dressed with Exofin surgical adhesive. Patient was then returned to supine position with the legs out of lithotomy. She was awakened and taken to recovery in good condition. Sponge needle counts were correct x2. Estimated Blood Loss -5 Drains No Packing No Pathology Yes (Subcutaneous mass of the back, skin lesion left groin) Complications None Condition Stable Disposition PACU [facility] Billing Surgery - Charge Forward: Surgery Billing (Excision 8 cm subcutaneous mass of the back with no margins, 10 cm layered closure; excision 2.6 cm skin lesion left groin with 2 mm margins, 3 cm excision with simple closure.)
[2024-08-18 16:15] VITALS: BP 125/80; PULSE 89; RESP 14; O2SAT 100
[2024-08-18 16:20] VITALS: BP 146/72; PULSE 93; RESP 16
[2024-08-18 16:50] VITALS: BP 120/78; PULSE 92; RESP 16
[2024-08-18] MEDS: KETOROLAC 10 MG TABLET PO (17:11)
== END 2024-08-18 17:25 | disposition home or self-care (01) ==
PROVIDERS: PCP Emergency Medicine; Visit Provider Surgery
PROC: (CPT 21931; principal; 2024-08-18 13:00)
DX: D17.1 Benign lipomatous neoplasm of skin and subcutaneous tissue of trunk (principal); D22.5 Melanocytic nevi of trunk; G89.18 Other acute postprocedural pain; J45.909 Unspecified asthma, uncomplicated; F17.210 Nicotine dependence, cigarettes, uncomplicated; F17.290 Nicotine dependence, other tobacco product, uncomplicated; Z79.891 Long term (current) use of opiate analgesic; Z82.49 Family history of ischemic heart disease and other diseases of the circulatory system
CPT/HCPCS: 21931; 11403; 88304; A9270; J0690; J1100; J2003; J2250; J2405; J2704; J3010; J7120

== ENCOUNTER 2024-08-23 13:26 | Emergency (ER) | payer BC, SELFPAY ==
--- NOTE | ~2024-08-23 | XR_ITS ---
EXAMINATION: XR chest 2V 08/23/2024 14:50 INDICATION: Chest pain, shortness of breath and cough PROCEDURE: 2 view chest COMPARISON: 02/06/2022 FINDINGS: The lungs are clear. The cardiomediastinal silhouette is within normal limits. There are no pleural effusions. There is no pneumothorax suspected. IMPRESSION: 1: NO ACUTE CARDIOPULMONARY DISEASE. Reviewed, dictated and finalized at location A.
[2024-08-23 13:33] VITALS: BP 119/69; PULSE 89; RESP 18; TEMP 36.7; O2SAT 97
--- OUTSIDE RECORDS SUMMARY | 2024-08-23 13:36 | XMS_ITS | Clinical Summary ---
Author Organization [facility] [address] [facility] Address [address] [place] [address] Care Team Providers Care Fork Lift Technician Name Role Phone No, Physician Primary Care Provider [phone] Allergies Active Allergy Reactions Criticality Noted Date Comments Penicillins Anaphylaxis High Reaction: Anaphylaxis, Medications No known medications Social History Tobacco Use Types Packs/Day Years Used Date Smoking Tobacco: Never Assessed Personal Safety Answer Date Recorded Have you ever been in or are you currently in a harmful physical or emotional relationship or is someone making you feel afraid or unsafe? Denies 02/11/2024 Comments Unknown Sex and Gender Information Value Date Recorded Sex Assigned at Not on file Legal Sex Female 1:35 AM PIPELAYING FITTER Gender Identity Not on file Sexual Orientation Not on file Obstetrics History Last Filed Vital Signs Vital Sign Reading Time Taken Comments Blood Pressure 124/87 02/12/2024 1:30 AM CDT Pulse 97 02/12/2024 1:30 AM CDT Temperature 36.9 C (98.4 F) 02/11/2024 9:35 PM CDT Respiratory Rate 20 02/11/2024 11:44 PM CDT Oxygen Saturation 99% 02/12/2024 1:30 AM CDT Inhaled Oxygen Concentration - - Weight 72 kg (158 lb 11.7 oz) 02/11/2024 9:35 PM CDT Height 162.6 cm (5' 4.02 ) 02/11/2024 9:35 PM CD T Body Mass Index 27.23 02/11/2024 9:35 PM CDT Plan of Treatment Health Maintenance Due Date Last Done Comments Breast Cancer Screening-Mammogram 1981 Cervical Cancer Screening 1981 Depression Screening 1981 Varicella Vaccines (1 of 2 - 13+ 2-dose series) 1994 Hepatitis B Screening 1999 Regular Well Visit/Exam 18-64 1999 Influenza Vaccine (#1) 2023 04/17/2015, 2012 DTaP/Tdap/Td Vaccine (3 - Td or Tdap) 06/11/2025 06/12/2015, 03/04/2013 Pneumococcal vaccine <65 Aged Out 03/04/2013, 02/11 No longer eligible based on patient's age to complete this topic Hepatitis C Screening Completed 06/09/2015 , 06/09/2015, 03/01/2013, Additional history exists HPV Vaccines Aged Out No longer eligi ble based on patient's age to complete this topic Procedures Procedure Name Priority Date/Time Associated Diagnosis Comments SERUM HEPATITIS C AB Routine 06/09/2015 2:28 PM PIPELAYING FITTER from Last 3 Months or Most Recently Relevant to Health Maintenance Results * (ABNORMAL) Serum Hepatitis C ab (06/09/2015 2:28 PM PIPELAYING FITTER) HCV ab Positive(A ) NEG HISTORICAL RESULTS Serum 06/09/2015 2:28 PM PIPELAYING FITTER Narrative HISTORICAL RESULTS - 06/10/2015 5:25 AM PIPELAYING FITTER Interpretive Data If confirmation is required, call Laboratory Customer Service to request sample to be sent to [facility] for Hepatitis C Virus (HCV) RNA Detection and Quantitation by Real-Time Reverse Flight Purser-PCR (RT-PCR). Current interpretive data was last revised on 2011 Elinor Rodriguez MD LAB BLOOD ORDERABLES [facility] al Result HISTORICAL RESULTS from Last 3 Months or Most Recently Relevant to Health Maintenance Insurance IDPA BLUE ACCESS ID BLUE ACCESS ID [facility] Care Teams Fork Lift Technician Relationship Specialty Start Date End Date No, Physician PCP - General 07/08/21
--- OUTSIDE RECORDS SUMMARY | 2024-08-23 13:36 | XMS_ITS | Referral Summary ---
Author Organization [facility] [address] [facility] Address [address] [place] [address] Care Team Providers Care Lab Courier Name Role Phone No, Physician Primary Care Provider [phone] Allergies Active Allergy Reactions Criticality Noted Date [...] on file Legal Sex Female 1:35 AM KOSHER SEALER Gender Identity Not on file Sexual Orientation [...] 02/11/2024 9:35 PM CDT Plan of Treatment Not on file Procedures Procedure Name Priority Date/Time Associated Diagnosis Comments SERUM HEPATITIS C AB Routine 06/09/2015 2:28 PM KOSHER SEALER from Last 3 Months or Most Recently Relevant to Health Maintenance Results * (ABNORMAL) Serum Hepatitis C ab (06/09/2015 2:28 PM KOSHER SEALER) HCV ab Positive(A ) NEG HISTORICAL RESULTS Serum 06/09/2015 2:28 PM KOSHER SEALER Narrative HISTORICAL RESULTS - 06/10/2015 5:25 AM KOSHER SEALER Interpretive Data If confirmation is required, call Laboratory Customer Service to request sample to be sent to [facility] for Hepatitis C Virus (HCV) RNA Detection and Quantitation by Real-Time Reverse Rag Washer-PCR (RT-PCR). Current interpretive data was last revised on 2011 Elinor Rodriguez MD LAB BLOOD ORDERABLES [facility] al Result HISTORICAL RESULTS from Last 3 Months or Most Recently Relevant to Health Maintenance Insurance [employer] [place] Care Teams Lab Courier Relationship Specialty Start Date End Date No, Physician PCP - General 07/08/21
--- OUTSIDE RECORDS SUMMARY | 2024-08-23 13:36 | XMS_ITS | Clinical Summary ---
Author Organization [facility] Address [address] [place] [address] Care Team Providers Care Reconciliation Analyst Name Role Phone None, Provider MD Primary [...] complete this topic Insurance MEDICAID Care Teams Reconciliation Analyst Relationship Specialty Start Date End Date None, Provider, PCP - General UNKNOWN PHYSICIAN SPECIALTY 01/09/24
--- NOTE | 2024-08-23 13:41 | ECG_ITS ---
Test Date: 2024-08-23 13:51:47 Measurements Intervals [place] Rate: 87 P: 57 AK: 130 QRS: 51 QRSD: 92 T: 40 QT: 335 QTc: 404 Interpretive Statements SINUS RHYTHM Compared to ECG 02/18/2024 17:53:21 Sinus arrhythmia no longer present Electronically Signed On 08-23-2024 18:16:45 CDT by Khushboo Harvey
--- NOTE | 2024-08-23 13:56 | PC.NURSE ---
Ishaan from vascular access called to obtain IV and labs.
--- NOTE | 2024-08-23 14:05 | ED_ITS ---
HPI - URI/Sore Throat General Chief Complaint: Chest Pain Stated Complaint: I think I have pneumonia , recent sx Time Seen by Provider: 08/23/24 13:34 History of Present Illness HPI Narrative: 44-year-old female with a history of asthma, anxiety and depression presents to the emergency department for cough, congestion, shortness of breath and chest tightness for the past couple of weeks. Patient states her mother sick with similar symptoms. She initially thought her symptoms were due to allergies but states she gets frequent pneumonia so was concerned she may have pneumonia as well. She reports generalized fatigue and malaise. Denies fevers, abdominal pain, N/V/D, dysuria. She states she has tightness to the left side of her chest, no aggravating or alleviating factors. Denies hemoptysis, history of VTE. She states she has noticed some swelling to her lower extremities bilaterally. Notably she underwent room removal of a dermatofibroma to her left thigh and a lipoma to her back on 08/18/2024 under general anesthesia with Dr. Medina. No complications. Related Data Allergies Allergy/AdvReac Type Severity Reaction Status Date / Time Penicillins Allergy Mild Difficulty Verified 08/23/24 13:37 Swallowing Review of Systems 2 Review of Systems: All systems reviewed & are unremarkable except as noted in HPI and below PMFSH Family History Family History Grandparent Diabetes mellitus Heart disease Mother Hypertension Depression Thyroid disorder Sibling Hypertension Heart disease Father Depression Social History Social History Smoking packs per day: 0.75 Smoking cigarettes per day: 15.0 Years smoked: 13 Smoking pack-years: 9.75 Smoking status: Current every day smoker Tobacco type: cigarettes and e-cigarettes/vaping Additional smoking assessment comments: QUIT 2009 Alcohol intake: former Alcohol use details: Weekly Substance use: current Substance use type: former substance user, marijuana, crack/cocaine, heroin and methamphetamine Other substance usage details: QUIT 3 YRS AGO Last use: 1 week ago Do You Feel Safe in your Home?: Yes Lack of Transportation: No Lack of Food: Never True Current Housing: I Have Housing Concerned About Future Housing: No Difficulty Paying Gas/Electric Bills: No Difficulty Paying for Meds: No Currently Unemployed: No Education: High School Diploma/GED Difficulty w/ Childcare or Family Care: No Living arrangements: with family Exam 2 Narrative: GENERAL: Well-appearing, well-nourished, and in no acute distress. HEAD: Normocephalic, atraumatic. EYES: EOMI. ENT: Nares clear, no rhinorrhea or epistaxis. Mucous membranes moist. NECK: Supple. CHEST: Clear to auscultation. No respiratory distress. Satting 97% on room air in no respiratory distress and speaking in full sentences. HEART: Regular rate and rhythm. No murmur heard. Normal peripheral pulses. ABDOMEN: Soft, nontender, nondistended, normal active bowel sounds. EXTREMITIES: Normal range of motion. No edema. Negative Homans bilaterally SKIN: Warm, dry, no rash. NEURO: No focal deficits. Alert and oriented x3 Course Vital Signs Vital signs: Vital Signs Temperature 98.1 F 08/23/24 13:33 Pulse Rate 89 08/23/24 13:33 Respiratory Rate 18 08/23/24 13:33 Blood Pressure 119/69 08/23/24 13:33 Pulse Oximetry 97 08/23/24 13:33 Oxygen Delivery Room Air 08/23/24 13:33 Temperature 98.1 F 08/23/24 13:33 Pulse Rate 85 08/23/24 14:16 Respiratory Rate 14 08/23/24 14:16 Blood Pressure 119/69 08/23/24 13:33 Pulse Oximetry 97 08/23/24 13:33 Oxygen Delivery Room Air 08/23/24 13:33 MDM - URI/Sore Throat MDM Narrative Medical decision making narrative: 44-year-old female with history of asthma presents to the emergency department for cough or congestion cough shortness of breath and chest tightness for the past couple of weeks. See HPI for further history. Triage vitals are stable. Patient is afebrile and nontoxic. Resting comfortably in exam bed. She is satting 97% on room air in no respiratory distress, speaking in full sentences. Lung sounds are clear. Lab work without leukocytosis or anemia. Chemistries are unremarkable. Viral swabs are negative. Lipase within normal limits. EKG shows normal sinus rhythm with a rate of 87 ppm, normal CO interval, normal QRS duration, normal QTC, no ischemic changes. Troponin is undetectable. D- dimer within normal limits, wells score is low risk. Chest x-ray shows no acute cardiopulmonary findings. UA with 11-20 white blood cells and trace leuk esterase, nitrites or bacteria. Patient updated on results. Presentation consistent with viral bronchitis. Will start the patient on steroids, benzonatate, albuterol inhaler. She is also endorsing some urinary frequency, will treat for possible UTI with bactrim pending urine culture results. Encouraged rest increase fluid intake follow-up with PCP. Discussed strict ED return precautions. She is agreeable with the plan verbalized understanding. Discharged in stable condition. Lab Data 08/23/24 14:15 08/23/24 14:15 Labs: Lab Results 08/23/24 08/23/24 08/23/24 Range/Units 14:15 14:15 15:17 WBC 6.9 (4.5-10.0) K/mm3 RBC 4.02 L (4.2-5.4) M/mm3 Hgb 12.0 (12.0-15.0) g/dL Hct 37.3 (37.0-47.0) % MCV 92.8 (80-100) fl MCH 29.9 (26-34) pg MCHC 32.2 (32-36) g/dl RDW 12.5 (11.5-14.5) % Plt Count 293 (150-375) k/mm3 MPV 10.9 H (7.4-10.4) fl Immature Gran % (Auto) 0.1 (0-0.5) % Neut % (Auto) 67.1 (45.5-73.1) % Lymph % (Auto) 24.8 (18.3-44.2) % Esmeralda % (Auto) 6.8 (2.6-8.5) % Eos % (Auto) 0.9 (0-4.4) % Baso % (Auto) 0.3 (0.2-1.2) % Lymph # (Auto) 1.71 (0.9-3.2) K/mm3 Esmeralda # (Auto) 0.5 (0.1-0.6) K/mm3 Eos # (Auto) 0.1 (0-0.3) K/mm3 Baso # (Auto) 0.0 (0.0-0.1) K/mm3 Abs Immat Gran (auto) 0.01 (0.00-0.031) K/mm3 Absolute Neuts (auto) 4.6 (1.3-6.7) K/mm3 Absolute Nucleated RBC 0.000 (0.0-0.012) K/mm3 Nucleated RBC % 0.0 (0.0-0.2) % PT 12.4 (11.1-14.7) Seconds INR 0.9 APTT 26.3 (22.3-36.8) Seconds D-Dimer < 0.27 Cancelled (<0.48) ug/mL Sodium 139 (137-145) mmol/L Potassium 4.1 (3.4-5.0) mmol/L Chloride 103 (98-107) mmol/L Carbon Dioxide 26 (22-30) mmol/L Anion Gap 10 (4-12) mmol/L BUN 10 D (7-17) mg/dL Creatinine 0.81 (0.7-1.0) mg/dL Estim Creat Clear Calc 67 ml/min Estimated GFR > 60 (59 - ) Glucose 99 (65-110) mg/dL Calcium 9.3 (8.4-10.2) mg/dL Total Bilirubin 0.3 (0.2-1.3) mg/dL AST 32 (14-36) U/L ALT 28 (6-35) U/L Alkaline Phosphatase 57 (38-126) U/L Troponin I < 0.012 (0.000-0.034) ng/mL NT-Pro-B Natriuret Pep < 20 (19.9-100) pg/mL Total Protein 8.0 (6.3-8.2) g/dL Albumin 4.6 (3.5-5.1) g/dL Lipase 136 (23-300) U/L Urine Color (Yellow) Urine Appearance (Clear) Urine pH (5.0-9.0) Ur Specific [place] (1.001-1.035) Urine Protein (Negative) mg/dL Urine Glucose (UA) (Negative) mg/dL Urine Ketones (Negative) mg/dL Ur Blood (Man) (Negative) Urine Nitrate (Negative) Urine Bilirubin (Negative) Urine Urobilinogen (<2.0) mg/dL Leukocyte Esterase Rfl (Negative) UMER/UL Urine RBC (0-2) /hpf Urine WBC (0-3) /hpf Ur Squamous Epith Cells (Few) /hpf Urine Bacteria /hpf Urine Casts Influenza A (RT-PCR) Negative (Negative) Influenza B (RT-PCR) Negative (Negative) RSV (RT-PCR) Negative (Negative) SARS-CoV-2 RNA (RT-PCR) Negative (Negative) 08/23/24 Range/Units 16:31 WBC (4.5-10.0) K/mm3 RBC (4.2-5.4) M/mm3 Hgb (12.0-15.0) g/dL Hct (37.0-47.0) % MCV (80-100) fl MCH (26-34) pg MCHC (32-36) g/dl RDW (11.5-14.5) % Plt Count (150-375) k/mm3 MPV (7.4-10.4) fl Immature Gran % (Auto) (0-0.5) % Neut % (Auto) (45.5-73.1) % Lymph % (Auto) (18.3-44.2) % Esmeralda % (Auto) (2.6-8.5) % Eos % (Auto) (0-4.4) % Baso % (Auto) (0.2-1.2) % Lymph # (Auto) (0.9-3.2) K/mm3 Esmeralda # (Auto) (0.1-0.6) K/mm3 Eos # (Auto) (0-0.3) K/mm3 Baso # (Auto) (0.0-0.1) K/mm3 Abs Immat Gran (auto) (0.00-0.031) K/mm3 Absolute Neuts (auto) (1.3-6.7) K/mm3 Absolute Nucleated RBC (0.0-0.012) K/mm3 Nucleated RBC % (0.0-0.2) % PT (11.1-14.7) Seconds INR APTT (22.3-36.8) Seconds D-Dimer (<0.48) ug/mL Sodium (137-145) mmol/L Potassium (3.4-5.0) mmol/L Chloride (98-107) mmol/L Carbon Dioxide (22-30) mmol/L Anion Gap (4-12) mmol/L BUN (7-17) mg/dL Creatinine (0.7-1.0) mg/dL Estim Creat Clear Calc ml/min Estimated GFR (59 - ) Glucose (65-110) mg/dL Calcium (8.4-10.2) mg/dL Total Bilirubin (0.2-1.3) mg/dL AST (14-36) U/L ALT (6-35) U/L Alkaline Phosphatase (38-126) U/L Troponin I (0.000-0.034) ng/mL NT-Pro-B Natriuret Pep (19.9-100) pg/mL Total Protein (6.3-8.2) g/dL Albumin (3.5-5.1) g/dL Lipase (23-300) U/L Urine Color Yellow (Yellow) Urine Appearance Clear (Clear) Urine pH 7.5 (5.0-9.0) Ur Specific [place] 1.008 (1.001-1.035) Urine Protein Negative (Negative) mg/dL Urine Glucose (UA) Negative (Negative) mg/dL Urine Ketones Negative (Negative) mg/dL Ur Blood (Man) Negative (Negative) Urine Nitrate Negative (Negative) Urine Bilirubin Negative (Negative) Urine Urobilinogen 0.2 (<2.0) mg/dL Leukocyte Esterase Rfl Trace H (Negative) UMER/UL Urine RBC 0-2 (0-2) /hpf Urine WBC 11-20 H (0-3) /hpf Ur Squamous Epith Cells Few (Few) /hpf Urine Bacteria Rare /hpf Urine Casts 0-2 Influenza A (RT-PCR) (Negative) Influenza B (RT-PCR) (Negative) RSV (RT-PCR) (Negative) SARS-CoV-2 RNA (RT-PCR) (Negative) Discharge Plan Discharge Clinical Impression: Acute bronchitis, viral, Abnormal urinalysis Patient Disposition: Home Condition: Stable Instructions: Antibiotic Form, Urinary Tract Infection in Women (DC), Acute Bronchitis (ED) Additional Instructions: You were evaluated in the emergency department for cough, congestion, shortness of breath and generalized fatigue. Your workup here is reassuring. Her presentation is consistent with viral bronchitis. Please take the cough medications, steroids and albuterol inhaler as directed. You were also found to have a possible and UTI started on antibiotics for this. Please take these as directed. Please drink plenty of fluids including water, Gatorade Pedialyte and rest. Return to the emergency department if you develop any new or worsening symptoms. Patient Language: Estonian Prescriptions: New benzonatate 200 mg capsule 200 mg PO BID PRN (Reason: cough) Qty: 14 0RF prednisone 20 mg tablet 40 mg PO DAILY Qty: 10 0RF albuterol sulfate 90 mcg/actuation HFA aerosol inhaler 1 inh inhalation QID PRN (Reason: shortness of breath or wheezing) Qty: 6.7 0RF sulfamethoxazole-trimethoprim 800-160 mg tablet 1 tablet PO Q12H Qty: 14 0RF No Action ketorolac 10 mg tablet 10 mg PO Q6H 4 Days Qty: 16 0RF oxycodone-acetaminophen [Percocet] 5-325 mg tablet 0.5 - 1 tablet PO Q4H PRN (Reason: pain) Qty: 7 0RF Follow-up/Referrals: Jose Juan Santos MD [Primary Care Provider] -
[2024-08-23 14:09] VITALS: PULSE 87; RESP 12
[2024-08-23] MEDS: IPRATROPIUM 0.5 MG/ALBUTEROL SULFATE 2.5 MG AMPUL.NEB 3 ML INHALATION (14:09)
[2024-08-23 14:16] VITALS: PULSE 85; RESP 14
--- OUTSIDE RECORDS SUMMARY | 2024-08-23 14:27 | XMS_ITS | CONTINUITY OF CARE DOCUMENT ---
Author Name dianne dean Address Unknown Organization [facility] Address [address] [place] [address] Phone [phone] Care Team Providers Care Head Golf Professional Name Role Phone Manuel Wood MD Unavailable [phone] DOUG SORTO MD Unavailable [phone] DOUG SORTO MD Unavailable [phone] INSURANCE PROVIDERS Payer name Policy type / Coverage type [place] [employer] party ID [place] MED[place] Medicaid [id number]
--- OUTSIDE RECORDS SUMMARY | 2024-08-23 14:27 | XMS_ITS | Clinical Summary ---
Author Organization [facility] Address [address] [place] [address] Care Team Providers Care Food Science Professor Name Role Phone None, Provider MD Primary [...] complete this topic Insurance MEDICAID Care Teams Food Science Professor Relationship Specialty Start Date End Date None, Provider, PCP - General UNKNOWN PHYSICIAN SPECIALTY 01/09/24
--- OUTSIDE RECORDS SUMMARY | 2024-08-23 14:27 | XMS_ITS | Referral Summary ---
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 Gender Identity Not on file Sexual Orientation [...] HEPATITIS C AB Routine 06/09/2015 2:28 PM AIRCRAFT STRUCTURAL REPAIR MECHANIC from Last 3 Months or Most Recently Relevant to Health Maintenance Results * (ABNORMAL) Serum Hepatitis C ab (06/09/2015 2:28 PM AIRCRAFT STRUCTURAL REPAIR MECHANIC) HCV ab Positive(A ) NEG HISTORICAL RESULTS Serum 06/09/2015 2:28 PM AIRCRAFT STRUCTURAL REPAIR MECHANIC Narrative HISTORICAL RESULTS - 06/10/2015 5:25 AM AIRCRAFT STRUCTURAL REPAIR MECHANIC Interpretive Data If confirmation is required, call Laboratory Customer Service to request sample to be sent to [facility] for Hepatitis C Virus (HCV) RNA Detection and Quantitation by Real-Time Reverse Goodwill Representative-PCR (RT-PCR). Current interpretive data was last revised on 2011 Elinor Rodriguez MD LAB BLOOD ORDERABLES [facility] al Result HISTORICAL RESULTS from Last 3 Months or Most Recently Relevant to Health Maintenance Insurance [place] Care Teams Scrap Drop Operator Relationship Specialty Start Date End Date No, Physician PCP - General 07/08/21
--- OUTSIDE RECORDS SUMMARY | 2024-08-23 14:27 | XMS_ITS | Clinical Summary ---
Author Organization [facility] [place] [address] 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 Gender Identity Not on file Sexual Orientation [...] HEPATITIS C AB Routine 06/09/2015 2:28 PM BINDERY SUPERVISOR from Last 3 Months or Most Recently Relevant to Health Maintenance Results * (ABNORMAL) Serum Hepatitis C ab (06/09/2015 2:28 PM BINDERY SUPERVISOR) HCV ab Positive(A ) NEG HISTORICAL RESULTS Serum 06/09/2015 2:28 PM BINDERY SUPERVISOR Narrative HISTORICAL RESULTS - 06/10/2015 5:25 AM BINDERY SUPERVISOR Interpretive Data If confirmation is required, call Laboratory Customer Service to request sample to be sent to [facility] for Hepatitis C Virus (HCV) RNA Detection and Quantitation by Real-Time Reverse Charge Hand-PCR (RT-PCR). Current interpretive data was last revised on 2011 Elinor Rodriguez MD LAB BLOOD ORDERABLES [facility] al Result HISTORICAL RESULTS from Last 3 Months or Most Recently Relevant to Health Maintenance Insurance [place] BL[place] [facility] Care Teams Craps Dealer Relationship Specialty Start Date End Date No, Physician PCP - General 07/08/21
[2024-08-23 14:30] VITALS: BP 107/71; PULSE 94; RESP 20; O2SAT 97
[2024-08-23] MEDS: ASPIRIN 81 MG CHEWABLE TABLET 324 MG PO (14:36)
[2024-08-23 14:50] LABS: Basophils Percent Auto 0.3 % (0.2-1.2); Eosinophils Absolute Auto 0.1 K/mm3 (0-0.3); Eosinophils Percent Auto 0.9 % (0-4.4); Hematocrit 37.3 % (37.0-47.0); Immature Granulocyte Absolute 0.01 K/mm3 (0.00-0.031); Immature Granulocyte Percent A 0.1 % (0-0.5); Lymphocytes Absolute Auto 1.71 K/mm3 (0.9-3.2); Lymphocytes Percent Auto 24.8 % (18.3-44.2); Mean Corpuscular HGB Conc 32.2 g/dl (32-36); Mean Corpuscular Hemoglobin 29.9 pg (26-34); Mean Corpuscular Volume 92.8 fl (80-100); Mean Platelet Volume 10.9 fl (7.4-10.4); Monocytes Absolute Auto 0.5 K/mm3 (0.1-0.6); Monocytes Percent Auto 6.8 % (2.6-8.5); Neutrophils Absolute Auto 4.6 K/mm3 (1.3-6.7); Neutrophils Percent Auto 67.1 % (45.5-73.1); Platelet Count Result 293 k/mm3 (150-375); Red Blood Count 4.02 M/mm3 (4.2-5.4); Red Cell Distribution Width 12.5 % (11.5-14.5); White Blood Count 6.9 K/mm3 (4.5-10.0)
[2024-08-23 15:01] LABS: INR 0.9; Partial Thromboplastin Time 26.3 Seconds (22.3-36.8); Prothrombin Time 12.4 Seconds (11.1-14.7)
[2024-08-23 15:02] LABS: Alanine Aminotransferase 28 U/L (6-35); Albumin Level 4.6 g/dL (3.5-5.1); Alkaline Phosphatase 57 U/L (38-126); Anion Gap 10 mmol/L (4-12); Aspartate Amino Transferase 32 U/L (14-36); Bilirubin,Total 0.3 mg/dL (0.2-1.3); Blood Urea Nitrogen 10 mg/dL (7-17); Calcium 9.3 mg/dL (8.4-10.2); Carbon Dioxide 26 mmol/L (22-30); Chloride 103 mmol/L (98-107); Estimated CRCL calculation 67 ml/min; Estimated Glomerular Filt Rate > 60; Glucose 99 mg/dL (65-110); Lipase 136 U/L (23-300); Potassium 4.1 mmol/L (3.4-5.0); Sodium 139 mmol/L (137-145)
[2024-08-23 15:04] LABS: D Dimer < 0.27 ug/mL (<0.48)
[2024-08-23 15:14] LABS: Troponin I < 0.012 ng/mL (0.000-0.034)
[2024-08-23 15:30] VITALS: BP 106/71; PULSE 79; RESP 18; O2SAT 98
[2024-08-23 15:58] LABS: Influenza A QL RT-PCR Negative (Negative); Influenza B QL RT-PCR Negative (Negative); RSV RNA, RT-PCR Negative (Negative); SARS-CoV-2 RNA PCR Negative (Negative)
[2024-08-23 16:12] LABS: NT Pro B Type Natriuretic Pept < 20 pg/mL (19.9-100)
[2024-08-23 16:30] VITALS: BP 114/73; PULSE 82; RESP 20; O2SAT 97
[2024-08-23 16:44] LABS: Add Urine Microscopic? YES; Appearance Urine Clear (Clear); Bacteria Urine Rare /hpf; Bilirubin Urine Negative (Negative); Blood Urine Negative (Negative); Color Urine Yellow (Yellow); Glucose Urine UA Negative (Negative); Ketones Urine Negative (Negative); Leukocyte Esterase Ur Trace LEU/UL (Negative); Nitrate Urine Negative (Negative); Non Pathogenic Casts 0-2; Protein Urine Negative (Negative); RBC Urine 0-2 /hpf (0-2); Specific Grav Ur 1.008 (1.001-1.035); Squamous Epithelial Cell Urine Few /hpf (Few); Urobilinogen Urine 0.2 mg/dL (<2.0); pH Urine 7.5 (5.0-9.0)
[2024-08-23 17:07] LABS: BEDSIDEPREGUCG Negative (Negative)
[2024-08-23] MEDS: SULFAMETHOXAZOLE/TRIMETHOPRIM 800/160 MG DS TABLET 1 TAB PO (17:13)
== END 2024-08-23 17:18 | disposition home or self-care (01) ==
PROVIDERS: Emergency Provider Physician Assistant; PCP Emergency Medicine
DX: J20.8 Acute bronchitis due to other specified organisms (principal); Z20.822 Contact with and (suspected) exposure to COVID-19; Z87.891 Personal history of nicotine dependence; R82.998 Other abnormal findings in urine
CPT/HCPCS: 36415; 71046; 80053; 81001; 81025; 83690; 83880; 84484; 85025; 85380; 85610; 85730; 87086; 87637; 93005; 94640; 99284; A9270